=== PATIENT | female | born 1990 | race Caucasian/White ===

== ENCOUNTER 2017-11-01 12:44 | Emergency (ER) | payer OTHER ==
[~2017-11-01] VITALS: Ht 162.6 cm; Wt 55.0 kg
[~2017-11-01 12:44] MED LIST: MIRA33504 PO; PRIL20TA2 PO; SIME80CH CHEW; ZANTTAB9 PO; ZOFR4TAB3 SL
[2017-11-01 12:56] VITALS: BP 110/76; PULSE 82; RESP 14; TEMP 98.3; O2SAT 98
[2017-11-01] MEDS ORDERED: ZANT150T2 PO (14:00)
--- NOTE | 2017-11-01 14:04 | RADRPT ---
EXAM DATE: 11/01/2017 1:53 PM EDT AGE/SEX: 27 years / Female INDICATIONS: Left hand pain post hitting on a fridge door CLINICAL DATA: This is the patient's initial encounter. Patient reports that signs and symptoms have been present for 1 day and indicates a pain score of 3/10. MEDICAL/SURGICAL HISTORY: None. None. COMPARISON: No prior [place] exams available for comparison. FINDINGS: Bony structures are intact and in normal alignment. Osseous density is normal. Soft tissues are unre markable. No radiopaque foreign bodies seen. CONCLUSION: Negative trauma study. Electronically signed by: Devaughn Lundy MD 11/01/2017 2:02 PM EDT
--- NOTE | 2017-11-01 14:04 | RADRPT ---
EXAM DATE: 11/01/2017 1:52 PM EDT AGE/SEX: 27 years / Female INDICATIONS: Left wrist pain post hitting a fridge door CLINICAL DATA: This is the patient's initial encounter. Patient reports that signs and symptoms have been present for 1 day and indicates a pain score of 3/10. MEDICAL/SURGICAL HISTORY: None. None. COMPARISON: No prior [place] exams available for comparison. FINDINGS: Bony structures are intact and in normal alignment. Joints are intact without dislocation or signifi cant arthropathy. Osseous density is normal. Soft tissues are unremarkable. No radiopaque foreign bodies seen. CONCLUSION: Negative trauma study. Electronically signed by: Devaughn Lundy MD 11/01/2017 2:03 PM EDT
--- NOTE | 2017-11-01 14:20 | PD ---
HPI Chief Complaint: Injury Time Seen by Provider: 14:05 (Bria Clements) Time Seen by Provider: 14:13 (Jose Herrera MD) Travel History International Travel<30 days: No Contact w/Intl Traveler<30days: No Traveled to known affect area: No (Bria Clements) History of Present Illness HPI 27y female presents to the ED complaining of left wrist pain that started today while at work. Says that she was walking in the kitchen when a refrigerator door hit her wrist and she developed pain. Patient says she is having trouble moving her wrist because of the pain. Says that the pain radiates into her thumb and it feels "numb". Her numbness seems to be going away and is not as intense but continues to have the pain in her wrist. She is concerned about having a nerve problem in her wrist. She has full range of motion of her elbow and limited range of motion of her wrist secondary to pain. The pain is worse with movement and palpation of the radial aspect of the wrist decreases with rest. 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) Autoimmune Disease: Yes Blood Disorders: No Cancer: No Cardiovascular Problems: Yes (HEART PALIPITATIONS) Diabetes: No Diminished Hearing: No Endocrine: No Gastrointestinal Disorders: Yes ("history of ileus and slow GI motility" per mother's report) GERD: Yes Genitourinary: No Immune Disorder: Yes ("GROWS GRANULOMAS") Implanted Vascular Access Dvce: No Medical other: Yes ([facility] ) Musculoskeletal: Yes Neurologic: Yes (MILD CEREBRAL PALSY, autism) Reproductive: No Respiratory: No Immunizations Current: Yes Ulcer: Yes ?: Not LMP: 3 weeks ago : 0 Ovarian Cysts: Yes (Bria Clements) Past Surgical History Abdominal Surgery: Yes (1991,hiatal hernia [id number](G-tube) 2003,part of stomach and abd removed) Other Surgery: Yes (1991,"bereket fundal plycation" 1991,"pylora plasty") (Bria Clements) Social History Alcohol Use: No Tobacco Use: No Substance Use: No (Bria Clements) Allergies-Medications (Allergen,Severity, Reaction): Coded Allergies: diazepam (Unverified Allergy, Severe, "hives", 11/01/17) metoclopramide (Unverified Allergy, Severe, Swelling, 11/01/17) midazolam (Unverified Allergy, Severe, "hives", 11/01/17) erythromycin base (Unverified Allergy, Mild, NAUSEA, 11/01/17) morphine (Unverified Adverse Reaction, Severe, "severe itching,rubbed skin off face", 11/01/17) Reported Meds & Prescriptions Reported Meds & Active Scripts Active Reported Zantac (Ranitidine HCl) 150 Mg Tab 150 Mg PO DAILY (Jose Herrera MD) Review of Systems Except as stated in HPI: all other systems reviewed are Neg (Bria Clements) Physical Exam Narrative GENERAL: Well-developed well-nourished in no apparent distress SKIN: Warm and dry. HEAD: Normocephalic. EYES: No scleral icterus. No injection or drainage. NECK: Supple, trachea midline. No JVD. CARDIOVASCULAR: Regular rate and rhythm without murmurs, gallops, or rubs. RESPIRATORY: Breath sounds equal bilaterally. No accessory muscle use. MUSCULOSKELETAL: No cyanosis, or edema. Left wrist-tender palpation of the radial head with mild edema when compared to the right. mild TTP to thumb. Neurovascular intact BACK: Nontender without obvious deformity. No CVA tenderness. (Bria Clements) Data Data Last Documented VS Vital Signs Date Time Temp Pulse Resp B/P (MAP) Pulse Ox O2 Delivery O2 Flow Rate FiO2 11/01/17 12:56 98.3 82 14 110/76 (87) 98 (Jose Herrera MD) Orders Orders Hand, Complete ([id number]) (11/01/17 ) Wrist, Complete (Jtf2thd) (11/01/17 ) Ed Discharge Order (11/01/17 14:21) (Jose Herrera MD) MDM Medical Decision Making Medical Screen Exam Complete: Yes Emergency Medical Condition: Yes Differential Diagnosis Left wrist contusion, bursitis, cellulitis, fracture, osteonecrosis, avascular necrosis, sprain, strain Narrative Course 27y female presents to the ED complaining of left wrist pain that started today while at work. Says that she was walking in the kitchen when a refrigerator door hit her wrist and she developed pain. Patient says she is having trouble moving her wrist because of the pain. Says that the pain radiates into her thumb and it feels "numb". Her numbness seems to be going away and is not as intense but continues to have the pain in her wrist. She is concerned about having a nerve problem in her wrist. She has full range of motion of her elbow and limited range of motion of her wrist secondary to pain. The pain is worse with movement and palpation of the radial aspect of the wrist decreases with rest. Vital signs are stable. Physical exam findings consistent with a wrist contusion likely resulting in some neuralgia. X-rays without acute process. Patient be discharged with an Eugenio wrap. Advised she should use eugenio wrap as needed for pain. Pt to return to work as tolerated. Reassured patient. I advised on the expected course of her injury and the nerve pain she has. (Bria Clements) Diagnosis Primary Impression: Neuralgia Additional Impression: Wrist contusion Qualified Codes: S60.212A - Contusion of left wrist, initial encounter Referrals: Hand Surgeon Neurologist Primary Care Physician Additional Instructions: Use ice or heat for symptom relief. If no contraindications, you may use Tylenol or Motrin per package instructions for your pain. Elevate the joint above the heart to reduce swelling. You may use compression with Eugenio wrap or similar to reduce swelling. If symptoms persist or worsen, return to the emergency department. Follow up with your primary care physician within 2 days. Disposition: 01 DISCHARGE HOME Condition: Stable Bria Clements Nov 01, 2017 14:20 Jose Herrera MD Nov 01, 2017 16:41
== END 2017-11-01 15:03 | disposition home or self-care (01) ==
LOC: PHED 12:44 → PHEFT 15:03
DX: M79.2 Neuralgia and neuritis, unspecified (principal); S60.212A Contusion of left wrist, initial encounter; W22.8XXA Striking against or struck by other objects, initial encounter; Y99.0 Civilian activity done for income or pay; M19.90 Unspecified osteoarthritis, unspecified site; K21.9 Gastro-esophageal reflux disease without esophagitis; G80.9 Cerebral palsy, unspecified; F84.0 Autistic disorder; Z90.3 Acquired absence of stomach [part of]
CPT/HCPCS: 73110; 73130; 99283